=== PATIENT | male | born 1990 | race American Indian/Alaskan Native ===

== ENCOUNTER 2020-10-10 17:37 | Emergency (ER) | payer SELFPAY ==
[2020-10-10 17:44] VITALS: BP 123/73
--- NOTE | 2020-10-10 18:22 | Emergency Department Report ---
ED Back Pain/Injury HPI - General Chief Complaint: Back Pain/Injury Stated Complaint: BACK PAIN Time Seen by Provider: 10/10/20 18:22 Source: patient Limitations: No Limitations - History of Present Illness Initial Comments: Patient is a 30-year-old male presents emergency room complaints of upper back pain that began yesterday. Patient states that his job requires heavy lifting. He states that he works 6 days a week 12-hour shifts. He states he is frequently lifting all day long. He denies any fall or injury. He denies any fever, nausea, vomiting, diarrhea, urinary symptoms, numbness, weakness, bowel or bladder incontinence. He has a past medical history of bronchitis. No allergies to medications. - Related Data Previous Rx's Medication Instructions Recorded Last Taken Type Menthol/Camphor [Bend Niles 1 applicatio TP BID #18 oint...g. 10/10/20 Unknown Rx Ointment] Naproxen [EC-Naprosyn] 500 mg PO BID PRN #14 tablet. 10/10/20 Unknown Rx methOCARBAMOL [Robaxin TAB] 500 mg PO BID PRN #14 tab 10/10/20 Unknown Rx Allergies Allergy/AdvReac Type Severity Reaction Status Date / Time No Known Allergies Allergy Unverified 10/10/20 17:42 ED Review of Systems ROS: Stated complaint: BACK PAIN Other details as noted in HPI Comment: All other systems reviewed and negative ED Past Medical Hx - Past Medical History Previous Medical History?: No - Surgical History Past Surgical History?: No - Social History Smoking Status: Current Every Day Smoker - Medications Home Medications: Home Medications Medication Instructions Recorded Confirmed Last Taken Type Menthol/Camphor [Bend Niles 1 applicatio TP BID #18 oint...g. 10/10/20 Unknown Rx Ointment] Naproxen [EC-Naprosyn] 500 mg PO BID PRN #14 tablet. 10/10/20 Unknown Rx methOCARBAMOL [Robaxin TAB] 500 mg PO BID PRN #14 tab 10/10/20 Unknown Rx ED Physical Exam - General Limitations: No Limitations General appearance: alert, in no apparent distress - Head Head exam: Present: atraumatic, normocephalic - Eye Eye exam: Present: normal appearance - ENT ENT exam: Present: mucous membranes moist - Neck Neck exam: Present: normal inspection, full ROM. Absent: tenderness - Respiratory Respiratory exam: Present: normal lung sounds bilaterally. Absent: respiratory distress, wheezes, rales, rhonchi, stridor, chest wall tenderness, accessory muscle use, decreased breath sounds, prolonged expiratory - Cardiovascular Cardiovascular Exam: Present: regular rate, normal rhythm, normal heart sounds. Absent: systolic murmur, diastolic murmur, rubs, gallop - Back Exam Back exam: Present: normal inspection, full ROM, paraspinal tenderness (bilateral T-spine paraspinal muscular ttp, no midline C-spine, T-spine or L- spine ttp, no step offs, no deformities). Absent: vertebral tenderness - Neurological Exam Neurological exam: Present: alert, oriented X3 - Psychiatric Psychiatric exam: Present: normal affect, normal mood - Skin Skin exam: Present: warm, dry, intact ED Course Vital Signs 10/10/20 17:43 Temperature 97.8 F Pulse Rate 88 Respiratory 18 Rate Blood Pressure 123/73 O2 Sat by Pulse 100 Oximetry ED Medical Decision Making - Medical Decision Making Patient is a 30-year-old male presents emergency room complaints of upper back pain that began yesterday. Patient states that his job requires heavy lifting. He states that he works 6 days a week 12-hour shifts. He states he is frequently lifting all day long. He denies any fall or injury. He denies any fever, nausea, vomiting, diarrhea, urinary symptoms, numbness, weakness, bowel or bladder incontinence. He has a past medical history of bronchitis. No allergies to medications. on exam: bilateral T-spine paraspinal muscular ttp, no midline C-spine, T-spine or L-spine ttp, no step offs, no deformities, no focal neuro deficit. Vitals are normal. Examination appears most consistent with muscle strain. Patient has no red flag warning signs of back pain, no trauma, no unexplained weight loss, no neuro deficits, age is not greater than 50, no fever, no IV drug use, no steroid use, no history of cancer. Patient has no clinical signs of cauda equina or conus medullaris. Patient given prescription for naproxen, Robaxin, Bend balm ointment. Advised patient Please take medication as prescribed. Do not drive or operate machinery while taking muscle relaxer Robaxin. May use ice pack, heating pad, rest, Epsom salt bath. Follow- up with a primary care doctor for reexam. Return to emergency room immediately for any new or worsening symptoms. Critical care attestation.: If time is entered above; I have spent that time in minutes in the direct care of this critically ill patient, excluding procedure time. ED Disposition Clinical Impression: Acute thoracic myofascial strain Qualifiers: Encounter type: initial encounter Qualified Code(s): S29.019A - Strain of muscle and tendon of unspecified wall of thorax, initial encounter Disposition: TO HOME OR SELFCARE Is pt being admited?: No Does the pt Need Aspirin: No Condition: Stable Instructions: Muscle Strain, [id number] Additional Instructions: Please take medication as prescribed. Do not drive or operate machinery while taking muscle relaxer Robaxin. May use ice pack, heating pad, rest, Epsom salt bath. Follow-up with a primary care doctor for reexam. Return to emergency room immediately for any new or worsening symptoms. Prescriptions: Naproxen [EC-Naprosyn] 500 mg PO BID PRN #14 tablet.dr PRN Reason: pain methOCARBAMOL [Robaxin TAB] 500 mg PO BID PRN #14 tab PRN Reason: pain Menthol/Camphor [Bend Niles Ointment] 1 applicatio TP BID #18 oint...g. Referrals: TERI PEREZ MD [Staff Physician] - 3-5 Days [facility] [Provider Group] - 3-5 Days [facility], [LAB/CONTRACT] - 3-5 Days [facility], [Primary Care Provider] - 3-5 Days Forms: Work/School Release Form(ED) Time of Disposition: 18:28 Print Language: HUNGARIAN
== END 2020-10-10 19:22 | disposition home or self-care (01) ==
LOC: ED 17:37
DX: S29.019A Strain of muscle and tendon of unspecified wall of thorax, initial encounter (principal); F17.200 Nicotine dependence, unspecified, uncomplicated; Z79.899 Other long term (current) drug therapy; X50.0XXA Overexertion from strenuous movement or load, initial encounter; Y93.89 Activity, other specified; Y92.89 Other specified places as the place of occurrence of the external cause; Y99.8 Other external cause status
CPT/HCPCS: 99282